=== PATIENT | male | born 1995 | race Caucasian/White ===

== ENCOUNTER 2024-07-07 23:14 | Inpatient (IN) | payer SELFPAY ==
[2024-07-07] MEDS ORDERED: fentaNYL 50 mcg/mL 1 mL Vial ONE (23:28)
[2024-07-07] MEDS ORDERED: Sodium Chloride 0.9% 100 ML ONE (23:40)
[2024-07-07] MEDS ORDERED: CEFAZOLIN 2 GM VIAL ONE (23:40)
[2024-07-08] MEDS ORDERED: fentaNYL 50 mcg/mL 1 mL Vial ONE ×2 (00:29→13:24)
[2024-07-08 00:39] LABS: #Basophils 0.04 10x3/uL (0.0-0.2); %Basophils 0.5 % (0.0-1.0); %Eosinophils 1.1 % (0.0-10.0); %Lymphocytes 34.2 % (21.0-51.0); %Monocytes 8.7 % (0.0-10.0); %Neutrophils 55.3 % (42.0-75.0); Hemoglobin 16.2 g/dL (14.0-18.0); Mean Corpuscular HGB CONC 35.2 g/dL (32.0-36.0); Mean Corpuscular Hemoglobin 31.6 pg (27.0-31.0); Mean Corpuscular Volume 89.8 fL (78.0-98.0); Mean Platelet Volume 10.5 fL (7.4-10.4); Platelet Count 247 10x3/uL (130-400); RBC Distribution Width 11.9 % (11.5-14.5); Red Blood Cell (RBC) Count 5.12 mill/uL (4.70-6.10)
[2024-07-08] MEDS ORDERED: KETAMINE 100 MG/ML (5ML VIAL) ONE ×2 (00:47)
[2024-07-08 00:50] LABS: Anion Gap 18 mmol/L (10-20); BUN (Urea Nitrogen) 19 mg/dL (8.9-20.6); Calc. Creatinine Clearance 0 mL/min (70-130); Calcium 9.9 mg/dL (7.8-10.44); Carbon Dioxide 25 mmol/L (22-29); Chloride 102 mmol/L (98-107); Estimated GFR 86; Glucose 126 mg/dL (70-105); Potassium 3.4 mmol/L (3.5-5.1); Sodium 142 mmol/L (136-145)
[2024-07-08] MEDS ORDERED: Ketamine In 0.9 % NaCl 50 MG/5 ML SYRINGE ONE ×2 (01:25→13:24)
[2024-07-08] MEDS ORDERED: Lorazepam 2 MG/ML VIAL ONE (01:57)
[2024-07-08] MEDS ORDERED: Ondansetron PF 4 MG/2 ML Vial IVP PRN ×2 (02:36→16:15)
[2024-07-08] MEDS ORDERED: traMADol HCl 50 MG TAB PO PRN ×2 (02:36→16:45)
[2024-07-08] MEDS ORDERED: Promethazine HCl 25 MG/ML VIAL IM PRN ×2 (02:36→16:15)
[2024-07-08] MEDS ORDERED: Acetaminophen 325 MG TAB PO PRN (02:36)
[2024-07-08 05:38] VITALS: BMI 21.7
[2024-07-08] MEDS: Sodium Chloride 0.9% 1,000 ML IV SCH (05:45)
[2024-07-08] MEDS: CEFAZOLIN 2 GM in Sodium Chloride 0.9% 100 ML IVPB SCH ×2 (05:45→21:52)
[2024-07-08 05:52] LABS: #Basophils Less than 0.03 10x3/uL (0.0-0.2); #Eosinphils Less than 0.03 10x3/uL (0.0-0.7); %Basophils 0.2 % (0.0-1.0); %Eosinophils 0.1 % (0.0-10.0); %Lymphocytes 12.8 % (21.0-51.0); %Monocytes 6.6 % (0.0-10.0); %Neutrophils 79.9 % (42.0-75.0); Hematocrit 45.2 % (42.0-52.0); Hemoglobin 15.2 g/dL (14.0-18.0); Mean Corpuscular HGB CONC 33.6 g/dL (32.0-36.0); Mean Corpuscular Hemoglobin 30.5 pg (27.0-31.0); Mean Corpuscular Volume 90.6 fL (78.0-98.0); Mean Platelet Volume 10.2 fL (7.4-10.4); Platelet Count 198 10x3/uL (130-400); Red Blood Cell (RBC) Count 4.99 mill/uL (4.70-6.10)
[2024-07-08] MEDS: Morphine 4 MG/ML VIAL SLOW IVP PRN (05:55)
[2024-07-08 06:04] LABS: Anion Gap 15 mmol/L (10-20); BUN (Urea Nitrogen) 16 mg/dL (8.9-20.6); Calc. Creatinine Clearance 136 mL/min (70-130); Carbon Dioxide 24 mmol/L (22-29); Chloride 103 mmol/L (98-107); Estimated GFR 122; Glucose 106 mg/dL (70-105); Potassium 3.4 mmol/L (3.5-5.1); Sodium 139 mmol/L (136-145)
[2024-07-08] MEDS ORDERED: CEFAZOLIN 2 GM in Sodium Chloride 0.9% 100 ML IVPB SCH (12:00)
[2024-07-08] MEDS ORDERED: Midazolam HCl 2 mg/2 ml Vial ONE ×2 (13:24→13:38)
[2024-07-08] MEDS ORDERED: PROPOFOL 20 ML ONE (13:24)
[2024-07-08] MEDS ORDERED: Lidocaine 1% PF 5 ML VIAL ONE (13:25)
[2024-07-08] MEDS ORDERED: CEFAZOLIN 2 GM VIAL ONE (13:46)
[2024-07-08] MEDS ORDERED: Sodium Chloride 0.9% 100 ML ONE (13:46)
[2024-07-08] MEDS ORDERED: Ondansetron PF 4 MG/2 ML Vial ONE (14:19)
[2024-07-08] MEDS ORDERED: Dexamethasone 4 mg/ml Vial ONE (14:19)
[2024-07-08] MEDS ORDERED: Ropivacaine 0.2% 550 ML 550 ML NERVE BLCK SCH (16:15)
[2024-07-08] MEDS ORDERED: Zolpidem Tartrate 5 MG TAB PO PRN (16:15)
[2024-07-08] MEDS ORDERED: HYDROcodone/Acetaminophen 5/325 mg Tablet PO PRN (16:45)
[2024-07-08] MEDS ORDERED: Ketorolac Tromethamine 30 MG (1 mL) VIAL IVP PRN (16:45)
[2024-07-09] MEDS: traMADol HCl 50 MG TAB PO PRN (08:55)
[2024-07-09] MEDS: HYDROcodone/Acetaminophen 5/325 mg Tablet PO PRN (11:45)
[2024-07-09 13:24] VITALS: BP 104/71; TEMP 98.5
== END 2024-07-09 13:22 | disposition home or self-care (01) | DRG 512 ==
LOC: ERS 23:14 → SURG B 07-08 02:38
PROVIDERS: ADMIT Specialist; ATTEND Specialist
PROC: 0PSJ04Z Reposition Left Radius with Internal Fixation Device, Open Approach (ICD-10-PCS; principal; 2024-07-08)
PROC: 0PSL04Z Reposition Left Ulna with Internal Fixation Device, Open Approach (ICD-10-PCS; 2024-07-08)
DX: S52.222B Displaced transverse fracture of shaft of left ulna, initial encounter for open fracture type I or II (principal); M21.73 Unequal limb length (acquired), ulna and radius; S52.322B Displaced transverse fracture of shaft of left radius, initial encounter for open fracture type I or II; V00.131A Fall from skateboard, initial encounter; Y93.I9 Activity, other involving external motion; Y92.89 Other specified places as the place of occurrence of the external cause
CPT/HCPCS: 25565; 36415; 80048; 85025; 86850; 86900; 86901; 96374; 96375; 96376; 99152; A4306; C1713; C1874; J1100; J2060; J2250; J2272; J2405; J2704; J2795; J3010; J3490; J7030

== ENCOUNTER 2025-09-24 12:30 | Emergency (ER) | payer BC | END 2025-09-24 14:12 | disposition home or self-care (01) | LOC: ERS 12:30 | DX: G89.18 Other acute postprocedural pain (principal); M79.632 Pain in left forearm; Z47.89 Encounter for other orthopedic aftercare; F17.290 Nicotine dependence, other tobacco product, uncomplicated | CPT/HCPCS: 29125; 99283 ==

== ENCOUNTER 2025-10-25 14:31 | Outpatient (CLI) | payer BC | END 2025-10-25 14:32 | disposition home or self-care (01) | LOC: SCSMRI 14:31 | PROVIDERS: ATTEND Family Medicine | DX: M79.632 Pain in left forearm (principal); M25.512 Pain in left shoulder; G89.29 Other chronic pain; S52.202A Unspecified fracture of shaft of left ulna, initial encounter for closed fracture ==